=== PATIENT | male | born 1975 | race Caucasian/White ===

== ENCOUNTER 2023-02-24 18:16 | Emergency (ER) | payer OTHER, SELFPAY ==
[2023-02-24 19:10] VITALS: BP 156/9; PULSE 68; RESP 15; TEMP 36.6; O2SAT 99
--- NOTE | 2023-02-24 20:11 | ED.EYEPROB ---
HPI - Eye Problem General Chief complaint: Eye Problems Stated complaint: fb in eye Time Seen by Provider: 02/24/23 19:48 History of Present Illness HPI Narrative: Patient is a 48-year-old male presenting with left eye pain. Patient states that for the last day he has felt like an eyelash stuck in his left eye. 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 He does not wear contacts. States that he continues to feel like an eyelash stuck in his eye. States that the left eye is red. He denies changes in his vision. Denies pain with eye movement. He does complain of some eye drainage. Denies further complaints or concerns. Related Data Home Medications Medication Instructions Recorded Confirmed escitalopram oxalate 20 mg tablet 20 mg PO DAILY 02/21/23 02/28/23 (Lexapro) multivitamin with minerals-folic 1 tablet PO DAILY 02/21/23 02/28/23 acid 0.4 mg tablet Allergies Allergy/AdvReac Type Severity Reaction Status Date / Time No Known Allergies Allergy Mild Verified 02/28/23 08:49 Review of Systems Review of Systems: All systems reviewed & are unremarkable except as noted in HPI and below PMFSH Social History Social History Smoking status: Never smoker Alcohol intake: current Drinks per week: 2 Substance use type: does not use Living arrangements: with family Spiritual care concerns: No Exam Narrative: GENERAL: Well-appearing, well-nourished, and in no acute distress. Pleasant and cooperative HEAD: Normocephalic, atraumatic. EYES: PERRLA and EOMI. left eye with lateral conjunctival injection and chemosis; fluorescein exam with inferior corneal abrasion left eye ENT: Nares clear, no rhinorrhea or epistaxis. Mucous membranes moist. NECK: Supple. CHEST: No respiratory distress. HEART: Regular rate and rhythm ABDOMEN: nondistended EXTREMITIES: Normal range of motion. No edema. SKIN: Warm, dry, no rash. NEURO: No focal deficits. Alert and oriented x3. PSYCH: Normal mood and affect. Course Vital Signs Vital signs: Vital Signs Temperature 97.9 F 02/24/23 19:10 Pulse Rate 68 02/24/23 19:10 Respiratory Rate 15 02/24/23 19:10 Blood Pressure 156/9 H 02/24/23 19:10 Pulse Oximetry 99 02/24/23 19:10 Oxygen Delivery Room Air 02/24/23 19:10 Temperature 97.9 F 02/24/23 19:10 Pulse Rate 68 02/24/23 19:10 Respiratory Rate 15 02/24/23 19:10 Blood Pressure 156/9 H 02/24/23 19:10 Pulse Oximetry 99 02/24/23 19:10 Oxygen Delivery Room Air 02/24/23 19:10 MDM - Eye Problem MDM Narrative Medical decision making narrative: Patient is a 48-year-old male presenting with left eye pain, redness, foreign body sensation. Vitals within normal limits. Exam remarkable for the above. Visual acuity 20/25 on the left, 20/15 on the right. Fluorescein exam is concerning for an inferior lateral abrasion affecting the left eye. No evidence of an ulcer. I fully examined both of his lids do not appreciate any retained foreign bodies. We will thoroughly irrigate the eye and start him on ciprofloxacin drops. Advised that he call [facility] ophthalmology first thing in the morning for follow-up within 24 hours. Advised that he also follow-up with his PCP. Appropriate return precautions given. Patient voiced understanding and is agreeable with plan. Discharged in stable condition. Differential Diagnosis Differential diagnosis: Likely corneal abrasion, conjunctivitis and corneal ulcer Medical Records Attestation: I reviewed the patient's medical records. Critical Care Time Critical Care Time Critical Care Time: No Discharge Plan Discharge Clinical Impression: Corneal abrasion Patient Disposition: Home, Self-Care Condition: Stable Instructions: Antibiotic Form, Corneal Abrasion (DC) Additional Instructions: Your exam today is concerning for a corneal abrasion. We
[2023-02-24] MEDS: CIPROFLOXACIN HCL 0.3% OP SOLN 2.5 ML BTL 2 DROP LEFT EYE (21:56)
== END 2023-02-24 22:04 | disposition home or self-care (01) ==
PROVIDERS: Emergency Provider Emergency Medicine; PCP Internal Medicine
DX: S05.02XA Injury of conjunctiva and corneal abrasion without foreign body, left eye, initial encounter (principal); X58.XXXA Exposure to other specified factors, initial encounter
CPT/HCPCS: 99283

== ENCOUNTER 2023-02-28 03:18 | Day surgery (SDC) | payer OTHER, SELFPAY ==
[2023-02-21 09:18] VITALS: BMI 28.0
--- NOTE | 2023-02-25 14:33 | PM.HPGS ---
History of Present Illness History of Present Illness Consent: Risks, benefits, and alternatives have been discussed and questions answered. Patient agrees to proceed with procedure. Chief complaint: neoplasm screening Narrative: Leo Ortiz is a 48 year old male Referred for colon cancer screening. Review of Systems Review of Systems: All systems reviewed & are unremarkable except as noted in HPI and below PMFSH Social History Social History Smoking status: Never smoker Alcohol intake: current Drinks per week: 2 Substance use type: does not use Living arrangements: with family Spiritual care concerns: No Meds Home Medications and Allergies Home Medications Medication Instructions Recorded Confirmed Type escitalopram oxalate 20 mg tablet 20 mg PO DAILY 02/21/23 02/28/23 History (Lexapro) multivitamin with minerals-folic 1 tablet PO DAILY 02/21/23 02/28/23 History acid 0.4 mg tablet Allergies Allergy/AdvReac Type Severity Reaction Status Date / Time No Known Allergies Allergy Mild Verified 02/28/23 08:49 Exam Const: General: alert Orientation/consciousness: patient oriented x3 Resp: Auscultation: clear to auscultation bilaterally Cardio: Rate: regular rate Rhythm: regular rhythm GI: GI Palp: Yes Soft to palpation and No Tenderness to palpation present (GI) Neuro: General: patient oriented x3 Assessment and Plan Assessment and plan (1) Colon cancer screening: Code(s): Z12.11 - Encounter for screening for malignant neoplasm of colon Status: Acute Assessment and Plan: Colonoscopy with possible biopsy or polypectomy or cautery or injection of substances.
[2023-02-28 08:50] VITALS: BP 121/65; PULSE 56; RESP 15; TEMP 36.1; O2SAT 96; BMI 30.9
[2023-02-28] MEDS: LACTATED RINGERS 1,000 ML 150 ML IV CONT (08:59)
--- NOTE | 2023-02-28 09:00 | SUR.PREOP ---
Dr. Lawrence and Dr. Isaac made aware of the abrasion on the patients L eye that occured at his work on [employer]. patient is on cipro eye drops and has seen an ER clinic Dr as well as an eye Dr.
--- NOTE | 2023-02-28 09:33 | WPDANESEPPF ---
Anes - Initial Pre Proc Eval Procedure: Operation Date: 02/28/23 10:00 Proposed Procedures p Screening Colonoscopy - Vinayak Lawrence MD Date/Time: 02/28/23 09:33 Surgeon: Vinayak Lawrence MD Pre Op Diagnosis: neoplasm screening Patient Data Age: 48 Gender: M Height: 1.75 m Weight: 95.1 kg Last Vital Signs Temp 97 F L 02/28/23 08:50 Pulse 56 L 02/28/23 08:50 Resp 15 02/28/23 08:50 BP 121/65 02/28/23 08:50 Pulse Ox 96 02/28/23 08:50 O2 Del Method Room Air 02/28/23 08:50 Allergies Allergy/AdvReac Type Severity Reaction Status Date / Time No Known Allergies Allergy Mild Verified 02/28/23 08:49 Home Medications Medication Instructions Recorded Confirmed Type escitalopram oxalate 20 mg tablet 20 mg PO DAILY 02/21/23 02/28/23 History (Lexapro) multivitamin with minerals-folic 1 tablet PO DAILY 02/21/23 02/28/23 History acid 0.4 mg tablet Patient hx anesthesia problems: none Family hx anesthesia problems: none Results Review: All pre-operative results and documents have been reviewed as part of the pre-operative evaluation. [facility] Social History Social History Smoking status: Never smoker Alcohol intake: current Drinks per week: 2 Substance use type: does not use Living arrangements: with family Spiritual care concerns: No Anes - Eval Final PreProcedure Day of Procedure 02/28/23 09:33 Patient weight: obese Heart: regular rate and rhythm Lungs: clear to auscultation Airway: Mallampati scale class II Neurological: alert and oriented Last oral intake: >/= 8 hours ASA classification: II Emergent: no Anesthetic plan: proceed Anesthesia type and monitoring: general GIVS and standard monitoring Results Review: All pre-operative results and documents have been reviewed as part of the pre-operative evaluation. Informed Consent: The patient's anesthetic plan and its attendant risks and benefits were discussed with the patient/family/POA. Questions were solicited and answers provided to the satisfaction of the patient/family/POA.
[2023-02-28 10:08] VITALS: BP 83/48; PULSE 65; RESP 21; O2SAT 96
[2023-02-28 10:18] VITALS: BP 105/68; PULSE 58; RESP 20; O2SAT 93
[2023-02-28 10:28] VITALS: BP 113/80; PULSE 60; RESP 15; O2SAT 96
--- NOTE | 2023-02-28 10:30 | SUR.PHASEII ---
Patient has another doctor appointment 1t 1115 in the building. Patient requested to go to the cafeteria. Patient is ambulatory and walked to the cafeteria upon discharge from the unit.
== END 2023-02-28 10:35 | disposition home or self-care (01) ==
PROVIDERS: PCP Internal Medicine; Visit Provider Internal Medicine Gastroenterology
PROC: 0DJD8ZZ Inspection of Lower Intestinal Tract, Via Natural or Artificial Opening Endoscopic (ICD-10-PCS; CPT 45378; principal; 2023-02-28 10:00)
DX: Z12.11 Encounter for screening for malignant neoplasm of colon (principal); D12.5 Benign neoplasm of sigmoid colon; D12.2 Benign neoplasm of ascending colon
CPT/HCPCS: 45385; 45381; 88305; J2704; J7120

== ENCOUNTER 2023-03-05 08:40 | Outpatient (CLI) | payer OTHER, SELFPAY ==
[2023-03-05 08:54] LABS: Basophils Absolute Auto 0.03 K/mm3 (0.00-0.10); Basophils Percent Auto 0.6 % (0.0-1.0); Eosinophils Absolute Auto 0.17 K/mm3 (0.02-0.50); Eosinophils Percent Auto 3.2 % (1.0-6.0); Hematocrit 43.7 % (40.0-54.0); Hemoglobin 14.6 g/dL (14.0-18.0); Immature Granulocyte Absolute 0.02 K/mm3 (0.00-0.00); Immature Granulocyte Percent A 0.4 % (0.0-0.0); Lymphocytes Absolute Auto 2.02 K/mm3 (1.10-4.50); Lymphocytes Percent Auto 38.3 % (18.0-42.0); Mean Corpuscular HGB Conc 33.4 g/dL (32.0-36.0); Mean Corpuscular Volume 89.7 fL (78.0-102.0); Mean Platelet Volume 9.8 fl (8.7-11.0); Monocytes Absolute Auto 0.37 K/mm3 (0.10-0.90); Neutrophils Absolute Auto 2.7 K/mm3 (1.7-7.2); Neutrophils Percent Auto 50.5 % (50.0-70.0); Platelet Count Result 171 K/mm3 (150-420); Red Blood Count 4.87 M/mm3 (4.70-6.10); Red Cell Distribution Width 13.4 % (11.6-14.4); White Blood Count 5.3 K/mm3 (4.8-10.8)
[2023-03-05 09:51] LABS: Alanine Aminotransferase 25 U/L (16-63); Albumin Level 3.8 g/dL (3.4-5.0); Alkaline Phosphatase 88 U/L (46-116); Anion Gap 8 mmol/L (8-16); Bilirubin,Total 0.2 mg/dL (0.00-1.00); Blood Urea Nitrogen 16 mg/dL (7-18); Calcium 8.8 mg/dL (8.5-10.1); Carbon Dioxide 28 mmol/L (21-32); Chloride 107 mmol/L (98-108); Cholesterol 207 mg/dL (0-200); Estimated Glomerular Filt Rate > 60; Glucose 110 mg/dL (70-99); HDL Direct 32 mg/dL (40-60); LDL Cholesterol Calculated 153 mg/dL (<130); Osmolality Calculated 298 mOsm/kg (285-295); Potassium 4.7 mmol/L (3.5-5.1); Sodium 143 mmol/L (136-145); Thyroid Stimulating Hormone 0.81 uIU/mL (0.36-3.74); Triglycerides 112 mg/dL (0-150)
[2023-03-05 10:23] LABS: Aspartate Amino Transferase 14 U/L (15-37)
[2023-03-07 10:56] LABS: Hemoglobin A1C 5.5 % (<5.7)
== END 2023-03-05 08:41 | disposition home or self-care (01) ==
PROVIDERS: PCP Internal Medicine; Visit Provider Internal Medicine
DX: Z00.00 Encounter for general adult medical examination without abnormal findings (principal); B35.1 Tinea unguium; Z80.42 Family history of malignant neoplasm of prostate; R73.09 Other abnormal glucose
CPT/HCPCS: 36415; 80053; 80061; 83036; 84153; 84443; 85025; G0103

== ENCOUNTER 2024-09-08 09:33 | Outpatient (CLI) | payer OTHER, SELFPAY ==
--- OUTSIDE RECORDS SUMMARY | 2024-09-08 09:38 | XMS_ITS | Patient Health Summary ---
Author Organization [facility] Address [address] [place] [address] Care Team Providers Care Brass Cleaner Name Role Phone Alonzo Chao MD Primary Care Provider [phone] Note from [facility],non-owned Affiliates and Associated Physician Practices is amultiple site organization consisting of ambulatory clinics and hospital sitesin [place], [place], [place] and [place]. This disclosure is being madepursuant to the Care Everywhere program and may not contain all information available regarding this patient. Last updated 18.[facility] Allergies No known active allergies Medications * Be aware that medications may not be up to date on this document. Alwaysverify current medications with the patient. * EPINEPHrine (EPIPEN) 0.3 MG/0.3ML auto-injector pen(Started 02/07/2018) Inject 0.3 mL into muscle as needed for Anaphylaxis Active Problems No known active problems Social History Tobacco Use Types Packs/Day Years Used Date Smoking Tobacco: Never Smokeless Tobacco: Never Tobacco Cessation:Counseling Given: Not Answered Alcohol Use Standard Drinks/Week Comments Yes 0 (1 standard drink = 0.6 oz pur e alcohol) twice a month Sex and Gender Information Value Date Recorded Sex Assigned at Not on file Gender Identity Not on file Sexual Orientation Not on file Last Filed Vital Signs Vital Sign Reading Time Taken Comments Blood Pressure 135/75 04/27/2016 3:57 PM CDT Pulse 90 04/27/2016 3:57 PM CDT Temperature 36.6 ??C (97.8 ??F) 04/27/2016 3:57 PM CD T Respiratory Rate 14 04/27/2016 3:57 PM CDT Oxygen Saturation - - Inhaled Oxygen Concentration - - Weight 91.2 kg (201 lb) 01/04/2017 3:30 PM CDT Height 177.8 cm (5' 10 ) 01/04/2017 3:30 PM CDT Body Mass Index 28.84 01/04/2017 3:30 PM CDT Procedures * CULTURE AEROBIC(Performed 03/23/2016) Results * (ABNORMAL) CULTURE AEROBIC (03/23/2016 3:30 PM CDT) Culture Aerobic COAG NEG STAPH SPECIES(A) [facility] Comment:Light Growth Coagula se Neg Staph Species Culture Aerobic PENICILLIUM SPECIES(A) [facility] Comment:Very Light Growth Pe nicillium Species Gram Stain [facility] Comment:QNS-1 swab. Lesion SINUS / Unknown 03/23/2016 3 :30 PM CDT 03/23/2016 5:14 PM CDT Narrative [facility] - 03/31/2016 12:06 PM CDT Right maxillary ethmoid sinus. Culture & sensitivity please Specimen Type->Lesion Gram Stains are routinely screened for the presence of Polymorphonuclear Cells. Ac Obrien MD LAB - MICROBIOLOGY O RDERABLES [address] [phone] Care Teams Brass Cleaner Relationship Specialty Start Date End Date Alonzo Chao MD [address] [place], [place] [id number] PCP - General 11/22/18
--- OUTSIDE RECORDS SUMMARY | 2024-09-08 09:38 | XMS_ITS | Clinical Summary ---
Author Organization [facility] Address [address] [place] [address] Care Team Providers Care Chief Supply Chain Officer Name Role Phone Alonzo Chao MD Primary Care Provider Source Comments [facility],non-owned Affiliates and Associated Physician Practices is amultiple site organization consisting of ambulatory clinics and hospital sitesin [place], [place] and [place]. This disclosure is being madepursuant to the Care Everywhere program and may not contain all information available regarding this patient. Last updated 18.[facility] Allergies No known active allergies Medications * Be aware that medications may not be up to date on this document. Alwaysverify current medications with the patient. Medication Sig Dispensed Refills Start Date End Date Status EPINEPHrine (EPIPEN) 0.3 MG/0.3ML auto-injector pen Inject 0.3 mL into muscle as needed for Anaphylaxis 1 Each 02/07/2018 Active Active Problems No known active problems Family History Medical History Relation Name Comments Diabetes - Type 2 Father Glaucoma Mother Relation Name Status Comments Father Mother Social History Tobacco Use Types Packs/Day Years [...] Mass Index 28.84 01/04/2017 3:30 PM CDT Plan of Treatment Health Maintenance Due Date Last Done Comments COLOGUARD (AGES 45-75) - COL ON CA SCREENING 1975 COLON MONITORING 1975 COLONOSCOPY - COLON CA SCREENING 1975 CT COLONOGRAPHY - COLON CA SCREENING 1975 Colorectal Cancer Screening 1975 FIT - COLON CA SCREENING 1975 FLEX SIG - COLON CA SCREENING 1975 LIPID TESTING 1975 HIV SCREENING 1990 HEPATITIS C SCREENING 01/10/1993 DTAP/TDAP/TD VACCINES (1 - Tdap) 1994 HEPATITIS B VACCINE (1 of 3 - 19+ 3-dose series) 1994 COVID-19 VACCINE ( - 2023-2 5 season) 2024 INFLUENZA VACCINE (#1) 2024 DEPRESSION SCREENING 08/15/2024 ZOSTER VACCINE (1 of 2) 2025 HIB VACCINE Aged Out No longer eligi ble based on patient's age to complete this topic HPV VACCINE Aged Out No longer eligi ble based on patient's age to complete this topic MENINGOCOCCAL (Group B) VACCINE Aged Out No longer eligible based on patient's age to complete this topic MENINGOCOCCAL VACCINE Aged Out No sammi marissa eligible based on patient's age to complete this topic PNEUMOCOCCAL VACCINE Aged Out No long er eligible based on patient's age to complete this topic Care Teams Chief Supply Chain Officer Relationship Specialty Start Date End Date Alonzo Chao MD [address] [place] [address] PCP - General 11/22/18
--- OUTSIDE RECORDS SUMMARY | 2024-09-08 09:38 | XMS_ITS | Referral Summary ---
Author Organization [facility] Address [address] [place] [address] Care Team Providers Care Seismograph Helper Name Role Phone Alonzo Chao MD Primary Care Provider [phone] Source Comments [facility],non-owned Affiliates and Associated Physician Practices is amultiple site organization consisting of ambulatory clinics and hospital sitesin [place], [place], [place] and [place]. This disclosure is being madepursuant to the Care Everywhere program and may not contain all information available regarding this patient. Last updated 18.[facility] Allergies No known active allergies Medications * Be aware that medications may not be up to date on this document. Alwaysverify current medications with the patient. Medication Sig Dispensed Refills Start Date End Date Status EPINEPHrine (EPIPEN) 0.3 MG/0.3ML auto-injector pen Inject 0.3 mL into muscle as needed for Anaphylaxis 1 Each 02/07/2018 Active Active Problems No known active problems Social [...] 01/04/2017 3:30 PM CDT Plan of Treatment Not on file Care Teams Seismograph Helper Relationship Specialty Start Date End Date Alonzo Chao MD [address] [place] [address] PCP - General 11/22/18
[2024-09-08 09:56] LABS: Basophils Absolute Auto 0.04 K/mm3 (0.00-0.10); Basophils Percent Auto 0.9 % (0.0-1.0); Eosinophils Absolute Auto 0.11 K/mm3 (0.02-0.50); Eosinophils Percent Auto 2.4 % (1.0-6.0); Hematocrit 43.5 % (40.0-54.0); Hemoglobin 14.1 g/dL (14.0-18.0); Immature Granulocyte Absolute 0.01 K/mm3 (0.00-0.00); Immature Granulocyte Percent A 0.2 % (0.0-0.0); Lymphocytes Absolute Auto 1.72 K/mm3 (1.10-4.50); Lymphocytes Percent Auto 36.8 % (18.0-42.0); Mean Corpuscular HGB Conc 32.4 g/dL (32-36); Mean Corpuscular Volume 86.3 fL (78.0-102.0); Mean Platelet Volume 9.9 fl (8.7-11.0); Monocytes Absolute Auto 0.33 K/mm3 (0.10-0.90); Monocytes Percent Auto 7.1 % (2.0-11.0); Neutrophils Absolute Auto 2.46 K/mm3 (1.70-7.20); Neutrophils Percent Auto 52.6 % (50.0-70.0); Platelet Count Result 193 K/mm3 (150-420); Red Blood Count 5.04 M/mm3 (4.70-6.10); Red Cell Distribution Width 13.5 % (11.6-14.4); White Blood Count 4.7 K/mm3 (4.8-10.8)
[2024-09-08 10:55] LABS: Alanine Aminotransferase 68 U/L (16-63); Alkaline Phosphatase 79 U/L (46-116); Anion Gap 8 mmol/L (4-12); Aspartate Amino Transferase 22 U/L (15-37); Bilirubin,Total 0.4 mg/dL (0.00-1.00); Blood Urea Nitrogen 15 mg/dL (7-18); Calcium 9.2 mg/dL (8.5-10.1); Carbon Dioxide 27 mmol/L (21-32); Chloride 107 mmol/L (98-108); Cholesterol 199 mg/dL (0-200); Estimated Glomerular Filt Rate > 60; Glucose 103 mg/dL (70-99); HDL Direct 34 mg/dL (40-60); LDL Cholesterol Calculated 145 mg/dL (<130); Osmolality Calculated 294 mOsm/kg (285-295); Prostate Specific Antigen 1.6 ng/mL (< OR = 4.0); Sodium 142 mmol/L (136-145); Thyroid Stimulating Hormone 0.87 uIU/mL (0.36-3.74); Triglycerides 101 mg/dL (0-150)
[2024-09-08 11:32] LABS: Add Urine Microscopic? NO; Appearance Urine Clear (Clear); Bilirubin Urine Negative (Negative); Blood Urine Negative (Negative); Color Urine Yellow (Yellow); Glucose Urine UA Negative (Negative); Ketones Urine Negative (Negative); Leukocyte Esterase Ur Negative (Negative); Nitrate Urine Negative (Negative); Protein Urine Negative (Negative); Specific Grav Ur 1.025 (1.010-1.020); Urobilinogen Urine 0.2 mg/dL (0.2-1.0)
[2024-09-12 02:13] LABS: Hepatitis B Surface Antigen NON-REACTIVE (NON-REACTIVE); Hepatitis C Virus Antibody NON-REACTIVE (NON-REACTIVE)
[2024-09-12 02:49] LABS: Hepatitis B Core Antibody NON-REACTIVE (NON-REACTIVE)
== END 2024-09-08 09:34 | disposition home or self-care (01) ==
LOC: CHSLAB 09:36
PROVIDERS: PCP Internal Medicine; Visit Provider Internal Medicine
DX: Z00.00 Encounter for general adult medical examination without abnormal findings (principal)
CPT/HCPCS: 36415; 80053; 80061; 80074; 81003; 84153; 84443; 85025; G0103

== ENCOUNTER 2024-10-02 07:12 | Outpatient (CLI) | payer OTHER, SELFPAY ==
--- NOTE | ~2024-10-02 | US_ITS ---
Limited Abdominal Sonogram: Real-time sonographic imaging of the right upper quadrant was performed. Clinical History: Elevated liver enzymes Findings: The liver appears echogenic, with no evidence of mass lesion or bile duct dilatation. Main portal vein demonstrates normal direction of flow. The gallbladder is well distended, and appears no rmal with no evidence of gallstone or wall thickening. The common bile duct measures 5 mm. The visua lized pancreas, aorta, and IVC are unremarkable. Impression: Diffuse fatty infiltration of liver. Reviewed, dictated and finalized at location M. TH SPA MANAGER Impression: Diffuse fatty infiltration of liver.
--- OUTSIDE RECORDS SUMMARY | 2024-10-02 07:16 | XMS_ITS | Clinical Summary ---
Author Organization [facility] [facility] Address [address] [place] [address] Care Team Providers Care Supervisor Detasseling Crew Name Role Phone Alonzo Chao MD Primary Care Provider [phone] [facility],non-owned Affiliates and Associated Physician Practices is amultiple site organization consisting of ambulatory clinics and hospital sitesin [place], [place], [place] and [place]. This disclosure is being madepursuant to the Care Everywhere program and may not contain all information available regarding this patient. Last updated 18.[facility] Allergies No known active allergies Medications * [...] 90 04/27/2016 3:57 PM CDT Temperature 36.6 C (97.8 F) 04/27/2016 3:57 PM CDT Respiratory Rate 14 04/27/2016 3:57 PM CDT [...] - 19+ 3-dose series) 1994 COVID-19 VACCINE (1 - 2023-2 5 season) 2024 INFLUENZA VACCINE [...] age to complete this topic Care Teams Supervisor Detasseling Crew Relationship Specialty Start Date End Date Alonzo Chao MD [address] [place] [address] PCP - General 11/22/18
--- OUTSIDE RECORDS SUMMARY | 2024-10-02 07:16 | XMS_ITS | Referral Summary ---
Author Organization [facility] Address [address] [place] [address] Care Team Providers Care Facilities Maintenance Engineer Name Role Phone Alonzo Chao MD Primary Care Provider [phone] Source Comments [facility],non-owned Affiliates and Associated Physician Practices is amultiple site organization consisting of ambulatory clinics and hospital sitesin [place], [place], [place] and [place]. This disclosure is being madepursuant to the Care Everywhere program and may not contain all information available regarding this patient. Last updated 18.[facility] Allergies No known active allergies Medications * [...] of Treatment Not on file Care Teams Facilities Maintenance Engineer Relationship Specialty Start Date End Date Alonzo Chao MD [address] [place] [address] PCP - General 11/22/18
--- OUTSIDE RECORDS SUMMARY | 2024-10-02 07:16 | XMS_ITS | Patient Health Summary ---
Author Organization [facility] Address [address] [place] [address] Care Team Providers Care Pasteurizing Machine Operator Name Role Phone Alonzo Chao MD Primary Care Provider [phone] Note from [facility],non-owned Affiliates and Associated Physician Practices is amultiple site organization consisting of ambulatory clinics and hospital sitesin [place], [place] and [place]. This disclosure is being madepursuant to the Care Everywhere program and may not contain all information available regarding this patient. Last updated 18.[facility] Allergies No known active allergies Medications * [...] CDT) Culture Aerobic COAG NEG STAPH SPECIES(A) [facility] Comment:Light Growth Coagula se Neg Staph Species Culture Aerobic PENICILLIUM SPECIES(A) [facility] Comment:Very Light Growth Pe nicillium Species Gram Stain [facility] Comment:QNS-1 swab. Lesion SINUS / Unknown 03/23/2016 3 :30 PM CDT 03/23/2016 5:14 PM CDT Narrative [facility] - 03/31/2016 12:06 PM CDT Right maxillary ethmoid sinus. Culture & sensitivity please Specimen Type->Lesion Gram Stains are routinely screened for the presence of Polymorphonuclear Cells. Ac Obrien MD LAB - MICROBIOLOGY O RDERABLES [place] [address] [place] [address], [facility] [phone] Care Teams Pasteurizing Machine Operator Relationship Specialty Start Date End Date Alonzo Chao MD [address] [place], [place] [id number] PCP - General 11/22/18
== END 2024-10-02 07:13 | disposition home or self-care (01) ==
PROVIDERS: PCP Internal Medicine; Visit Provider Internal Medicine
DX: R74.01 Elevation of levels of liver transaminase levels (principal); K76.0 Fatty (change of) liver, not elsewhere classified
CPT/HCPCS: 76705